=== PATIENT | male | born 1995 | race Caucasian/White ===

== ENCOUNTER 2024-12-15 00:13 | Emergency (ER) | payer SELFPAY ==
[2024-12-15 00:21] VITALS: TEMP 98.8; BMI 35.2
[2024-12-15] MEDS ORDERED: DIPHTH,PERTUSS(ACELL),TET 0.5 ML DISP.SYRIN IM ONE (00:51)
[2024-12-15] MEDS: DIPHTH,PERTUSS(ACELL),TET 0.5 ML DISP.SYRIN IM ONE (01:21)
[2024-12-15 01:52] VITALS: BP 172/119; PULSE 89; RESP 18
== END 2024-12-15 01:56 | disposition home or self-care (01) ==
LOC: JER 00:13
PROC: 0XQJXZZ Repair Right Hand, External Approach (ICD-10-PCS; principal; 2024-12-15)
PROC: 3E0234Z Introduction of Serum, Toxoid and Vaccine into Muscle, Percutaneous Approach (ICD-10-PCS; 2024-12-15)
DX: S61.215A Laceration without foreign body of left ring finger without damage to nail, initial encounter (principal); R03.0 Elevated blood-pressure reading, without diagnosis of hypertension; Z23 Encounter for immunization; W26.8XXA Contact with other sharp object(s), not elsewhere classified, initial encounter; Y93.G1 Activity, food preparation and clean up
CPT/HCPCS: 90715; 99284-25

== ENCOUNTER 2024-12-24 22:46 | Emergency (ER) | payer SELFPAY ==
[2024-12-24 22:51] VITALS: BP 161/111; PULSE 92; RESP 18; TEMP 98.8; BMI 34.3
== END 2024-12-24 23:06 | disposition home or self-care (01) ==
LOC: JER 22:46
DX: R03.0 Elevated blood-pressure reading, without diagnosis of hypertension (principal); Z48.02 Encounter for removal of sutures
CPT/HCPCS: 99283-25